=== PATIENT | female | born 1990 | race Asian ===

== ENCOUNTER 2017-10-28 17:55 | Emergency (ER) | payer SELFPAY ==
[~2017-10-28] VITALS: Ht 157.5 cm; Wt 63.0 kg
[2017-10-28 18:02] VITALS: Ht 157.5 cm; Wt 63.0 kg
[2017-10-28 19:19] VITALS: BP 120/88
== END 2017-10-28 19:17 | disposition home or self-care (01) ==
LOC: ED 17:55
DX: N39.0 Urinary tract infection, site not specified (principal)